=== PATIENT | female | born 1970 | race Asian ===

== ENCOUNTER → 2017-09-07 | Outpatient (CLI) | payer OTHER ==
[~2017-09-07] MED LIST: MELA1TAB8 PO
[2017-09-07 15:33] LABS: HEMATOCRIT 47.2 % (34.6-47.8); WHITE BLOOD COUNT 7.1 x10^3/uL (3.4-10)
[2017-09-07 15:48] LABS: BLOOD UREA NITROGEN 8 mg/dL (7-18)
[2017-09-07 15:51] LABS: ASPARTATE AMINO TRANSFERASE 17 U/L (15-37)
== END ==
LOC: STAR 14:22
PROVIDERS: ATTEND Specialist
DX: Z01.818 Encounter for other preprocedural examination (principal); N13.8 Other obstructive and reflux uropathy; Z90.710 Acquired absence of both cervix and uterus
CPT/HCPCS: 36415; 71020; 80053; 85025; 85610; 85730; 93005